=== PATIENT | male | born 2000 | race Caucasian/White ===

== ENCOUNTER 2020-03-11 17:40 | Emergency (ER) | payer OTHER ==
[~2020-03-11] VITALS: Ht 185.4 cm; Wt 67.6 kg
== END 2020-03-11 21:28 | disposition home or self-care (01) ==
LOC: EMR PED 17:40 → ER 17:40 → EMR PED 17:52
DX: K29.60 Other gastritis without bleeding (principal); Z03.818 Encounter for observation for suspected exposure to other biological agents ruled out

== ENCOUNTER 2022-10-13 16:50 | Emergency (ER) | payer OTHER ==
[~2022-10-13] VITALS: Ht 182.9 cm; Wt 64.0 kg
[2022-10-13] MEDS ORDERED: CARAFATE1 GM PO (20:15)
== END 2022-10-13 21:16 | disposition home or self-care (01) ==
LOC: ER 16:50
DX: K29.70 Gastritis, unspecified, without bleeding (principal); Z91.013 Allergy to seafood